=== PATIENT | female | born 1990 | race Caucasian/White ===

== ENCOUNTER 2016-12-13 09:55 | Emergency (ER) | payer MEDICAID ==
[~2016-12-13] VITALS: Ht 157.5 cm; Wt 108.9 kg
[2016-12-13 10:02] VITALS: BP_SYST 138
[2016-12-13 10:52] LABS: CALCIUM 8.6 mg/dL (8.4-11.0); CREATININE 0.71 mg/dL (0.55-1.30); POTASSIUM 3.8 mmol/L (3.5-5.1)
[2016-12-13 10:53] LABS: TOTAL BILIRUBIN 0.4 mg/dL (0.0-1.0)
[2016-12-13 10:54] LABS: ALBUMIN 3.2 g/dL (3.4-4.8); TOTAL PROTEIN, SERUM 7.7 g/dL (6.4-8.3)
[2016-12-13 12:16] VITALS: BP_SYST 138
== END 2016-12-13 12:16 | disposition home or self-care (01) ==
LOC: SED 09:57
DX: G51.0 Bell's palsy (principal); Z88.2 Allergy status to sulfonamides
CPT/HCPCS: 36415; 70450-TC; 80053; 99285

== ENCOUNTER 2017-11-10 20:13 | Emergency (ER) | payer SELFPAY ==
[~2017-11-10] VITALS: Ht 160 cm; Wt 104.3 kg
[2017-11-10 20:21] VITALS: BP_SYST 127
--- NOTE | 2017-11-10 20:23 | NUR ---
Patient to ER bed 07 to gown for evaluation. Side rails up.
--- NOTE | 2017-11-10 20:30 | NUR ---
Patient AAOx4, ambulatory with steady gait. Patient states having a numb sensation to right toe; patient states the toe is the first digit of the right foot. Patient currently denies pain but states having discomfort when attempting to walk. Cap refill is brisk to right toes; patient is able to flex and extend numb toe and states sensation is present. Patient denies mechanical injury and denies any other complaints.
--- NOTE | 2017-11-10 20:43 | NUR ---
ER MD Marte at bedside evaluating the patient.
[2017-11-10 21:00] VITALS: BP_SYST 122
--- NOTE | 2017-11-10 21:00 | NUR ---
Patient given written and verbal discharge instructions and verbalizes understanding. ER MD Marte discussed with patient the results and treatment provided. Patient in stable condition. ID arm band removed. Patient educated on pain management and to follow up with PMD. Pain Scale 0/10. Opportunity for questions provided and answered.
== END 2017-11-10 21:00 | disposition home or self-care (01) ==
LOC: SED 20:13
DX: G58.8 Other specified mononeuropathies (principal); Z88.2 Allergy status to sulfonamides
CPT/HCPCS: 81025; 99282